=== PATIENT | female | born 1955 | race Caucasian/White ===

== ENCOUNTER 2016-08-02 13:17 | Emergency (ER) | payer MEDICAID ==
[2016-08-02 13:32] VITALS: BP 150/90; PULSE 62; RESP 20; TEMP 98.6; O2SAT 98
--- NOTE | 2016-08-02 14:28 | C.PDOC ---
History Of Present Illness 60 year old patient presents to the ED complaining of left hip pain for the past 2 days. Patient denies any history of sciatica or any trauma. Patient also denies fever, numbness, weakness, rash, or abdominal pain. Time Seen by Provider: 08/02/16 14:14 Chief Complaint (Nursing): Back Pain History Per: Patient History/Exam Limitations: no limitations Onset/Duration Of Symptoms: Days (2) Current Symptoms Are (Timing): Still Present Severity: Mild Pain Scale Rating Of: 3 Recent travel outside of the [place]: No Past Medical History Reviewed: Historical Data, Nursing Documentation, Vital Signs Vital Signs: Last Vital Signs Temp 98.6 F 08/02/16 13:28 Pulse 62 08/02/16 13:28 Resp 20 08/02/16 15:52 BP 150/90 08/02/16 13:28 Pulse Ox 98 08/02/16 16:16 - Medical History PMH: HTN, Hypercholesterolemia Surgical History: Appendectomy Family History: States: Unknown Family Hx - Social History Hx Tobacco Use: No Hx Alcohol Use: No Hx Substance Use: No - Immunization History Hx Tetanus Toxoid Vaccination: Yes Hx Influenza Vaccination: No Hx Pneumococcal Vaccination: No Review Of Systems Except As Marked, All Systems Reviewed And Found Negative. Constitutional: Negative for: Fever Gastrointestinal: Negative for: Abdominal Pain Musculoskeletal: Positive for: Other (left hip pain) Skin: Negative for: Rash Neurological: Negative for: Weakness, Numbness Physical Exam - Physical Exam Appears: Non-toxic, No Acute Distress Skin: Warm, Dry, No Rash Head: Atraumatic, Normacephalic Eye(s): bilateral: Normal Inspection, EOMI Neck: Normal ROM, Supple Chest: Symmetrical Cardiovascular: Rhythm Regular Respiratory: No Accessory Muscle Use Back: Normal Inspection Extremity: Normal ROM, No Calf Tenderness, No Deformity, Other (vague tenderness to the left buttock with deep palpation) Neurological/Psych: Oriented x3 Gait: Steady ED Course And Treatment O2 Sat by Pulse Oximetry: 98 (RA) Pulse Ox Interpretation: Normal - Other Rad L hip X-Ray: Interpreted by Me (neg) Progress Note: Plan: -Ultram. -Left hip x-ray. -Reassess and disposition Medical Decision Making Medical Decision Making: L buttock pain, no hip pain, no fall/sciatica ice, NSAIDS And occasional Tramadol educated. Disposition Doctor Will See Patient In The: Office Counseled Patient/Family Regarding: Studies Performed, Diagnosis - Disposition Referrals: Lamont Trujillo MD [Staff Provider] - Disposition: HOME/ ROUTINE Disposition Time: 14:28 Condition: GOOD Additional Instructions: ice packs 1/2 hour per hour, nothing hot. Motrin 600 mg every 6 hours or Naproxyn 500 mg every 12 hours as needed Pepcid 20 mg @ night to prevent stomach irritation Tramadol 50 mg (narcotic) 1-2 tabs every 6 hours as needed Follow-up with your PMD for further eval as needed. Prescriptions: traMADol [Ultram] 50 mg PO Q6H PRN #20 tab PRN Reason: pain Instructions: Hip Pain (ED) - Clinical Impression Clinical Impression: Buttock pain - Scribe Statement The provider has reviewed the documentation as recorded by the Scribe Lin Monsivais Provider Attestation: All medical record entries made by the Scribe were at my direction and personally dictated by me. I have reviewed the chart and agree that the record accurately reflects my personal performance of the history, physical exam, medical decision making, and the department course for this patient. I have also personally directed, reviewed, and agree with the discharge instructions and disposition.
--- NOTE | 2016-08-02 15:54 | RAD ---
Indication: L hip pain, no trauma Left hip with pelvis Comparison: None available Findings: No acute displaced fracture or dislocation identified. Sacroiliac joints appear intact. Mild constipation. Pelvic calcifications, likely phleboliths. Degenerative changes of the lower lumbar spine. Soft tissues appear unremarkable. No evidence of radiopaque foreign body. Impression: No acute findings.
== END 2016-08-02 15:52 | disposition home or self-care (01) ==
LOC: C.ER 13:17
DX: M54.89 Other dorsalgia (principal)